=== PATIENT | male | born 2000 | race Caucasian/White ===

== ENCOUNTER 2020-06-29 19:52 | Inpatient (IN) | payer MEDICAID, OTHER ==
[~2020-06-29] VITALS: Ht 175.3 cm; Wt 92.7 kg
[2020-06-29] MEDS ORDERED: LORazepam 0.5 MG TAB ONE (20:27)
[2020-06-29] MEDS ORDERED: LORazepam 0.5 MG TAB PO ONE (20:45)
[2020-06-29] MEDS ORDERED: ALUM & MAG HYDROX-SIMETH LIQ(MAALOX) 30 ML ONE (21:45)
[2020-06-29] MEDS ORDERED: ALUM & MAG HYDROX-SIMETH LIQ(MAALOX) 30 ML PO ONE (22:45)
[2020-06-29] MEDS ORDERED: LORazepam 2MG/ML-1ML VIAL IM ONE (23:00)
[2020-06-29] MEDS ORDERED: HALOPERIDOL LACTATE 5 MG/ML INJ VIAL IM ONE (23:00)
[2020-06-29] MEDS ORDERED: diphenhdrAMINE HCL 50 MG/1 ML VL IM ONE (23:00)
[2020-06-29 23:11] LABS: Basophils # (auto) 0.1 10 ^3/uL (0-0.2); Basophils % (auto) 0.5 % (0.0-2.0); Eosinophils # (auto) 0 10 ^3/uL (0-0.8); Eosinophils % (auto) 0.4 % (0.0-7.0); Hematocrit 42.5 % (41.0-53.0); Hemoglobin 13.9 g/dL (13.5-17.5); Lymphocytes # (auto) 2.4 10 ^3/uL (0.4-5.4); Lymphocytes % (auto) 23.6 % (10.0-50.0); Mean Corpuscular Hemoglobin 28.5 pg (28.0-32.0); Mean Corpuscular Hgb Conc. 32.7 g/dL (32.0-36.0); Mean Corpuscular Volume 87.1 fL (80.0-100.0); Monocytes # (auto) 0.8 10 ^3/uL (0-1.3); Monocytes % (auto) 8.2 % (0.0-12.0); Neutrophils # (auto) 6.8 10 ^3/uL (1.6-8.6); Neutrophils % (auto) 67.3 % (37.0-80.0); Platelet Count (auto) 499 10^3/uL (140-450); Red Blood Cells 4.88 10^6/uL (4.5-5.90); Red Cell Distribution Width 14.1 % (11.8-14.3); White Blood Cell 10.1 10^3/uL (4.4-10.8)
[2020-06-29 23:20] LABS: Albumin 4.7 g/dL (3.4-5.0); Anion Gap 10 (5-15); Blood Alcohol < 3.0 mg/dL (0-5); Blood Urea Nitrogen 13 mg/dL (7-18); Calcium 9.3 mg/dL (8.5-10.1); Carbon Dioxide 23 mmol/L (21-32); Chloride 104 mmol/L (98-107); Glucose 95 mg/dL (74-106); Potassium 3.6 mmol/L (3.5-5.1); Sodium 137 mmol/L (136-145)
[2020-06-29 23:23] LABS: Alanine Aminotransferase 23 U/L (16-61); Alkaline Phosphatase 92 U/L (45-117); Aspartate Aminotransferase 17 U/L (15-37); BUN/Creatinine Ratio 14.8; Bilirubin, Total 1.3 mg/dL (0.2-1.0); GFR African American 141 mL/min; GFR Non-African American 116 mL/min; Total Protein 7.9 g/dL (6.4-8.2)
[2020-06-30] MEDS ORDERED: diphenhdrAMINE HCL 50 MG/1 ML VL ONE (01:03)
[2020-06-30] MEDS ORDERED: HALOPERIDOL LACTATE 5 MG/ML INJ VIAL ONE (01:03)
[2020-06-30 01:24] LABS: Amphetamine Screen, Urine NEGATIVE (NEGATIVE); Barbiturate Scree,Urine NEGATIVE (NEGATIVE); Benzodiazephine Screen, Urine NEGATIVE (NEGATIVE); Cannabinoid Screen, Urine POSITIVE (NEGATIVE); Cocaine Screen, Urine NEGATIVE (NEGATIVE); Phencyclidine Screen, Urine NEGATIVE (NEGATIVE)
[2020-06-30 01:31] LABS: Opiate Scree,Urine NEGATIVE (NEGATIVE)
[2020-06-30] MEDS ORDERED: diphenhdrAMINE HCL 50 MG/1 ML VL IV ONE (02:00)
[2020-06-30] MEDS ORDERED: HALOPERIDOL LACTATE 5 MG/ML INJ VIAL IM ONE ×3 (02:00→21:00)
[2020-06-30] MEDS ORDERED: diphenhdrAMINE HCL 50 MG/1 ML VL IM ONE ×2 (02:00→21:00)
[2020-06-30 06:54] LABS: Salicylate < 1.7 mg/dL (2.8-20.0)
[2020-06-30 07:02] LABS: Acetaminophen < 2.0 ug/mL (10-30)
[2020-06-30] MEDS ORDERED: LORazepam 2MG/ML-1ML VIAL IM ONE (21:00)
[2020-07-01] MEDS ORDERED: SODIUM CHLORIDE 0.9% 1,000 ML IV ONE ×2 (06:45→15:30)
[2020-07-01] MEDS ORDERED: LORazepam 2MG/ML-1ML VIAL IV ONE ×2 (06:45→15:30)
[2020-07-01 07:24] LABS: Basophils # (auto) 0 10 ^3/uL (0-0.2); Basophils % (auto) 0.5 % (0.0-2.0); Eosinophils # (auto) 0 10 ^3/uL (0-0.8); Eosinophils % (auto) 0.2 % (0.0-7.0); Hematocrit 41.9 % (41.0-53.0); Hemoglobin 14.4 g/dL (13.5-17.5); Lymphocytes # (auto) 1.2 10 ^3/uL (0.4-5.4); Lymphocytes % (auto) 13.5 % (10.0-50.0); Mean Corpuscular Hemoglobin 29.6 pg (28.0-32.0); Mean Corpuscular Hgb Conc. 34.3 g/dL (32.0-36.0); Mean Corpuscular Volume 86.3 fL (80.0-100.0); Monocytes # (auto) 0.6 10 ^3/uL (0-1.3); Monocytes % (auto) 6.5 % (0.0-12.0); Neutrophils # (auto) 7.1 10 ^3/uL (1.6-8.6); Neutrophils % (auto) 79.3 % (37.0-80.0); Nucleated Red Blood Cells % 0.1 %; Platelet Count (auto) 446 10^3/uL (140-450); Red Blood Cells 4.86 10^6/uL (4.5-5.90); Red Cell Distribution Width 13.7 % (11.8-14.3); White Blood Cell 8.9 10^3/uL (4.4-10.8)
[2020-07-01 07:42] LABS: Albumin 4.5 g/dL (3.4-5.0); Calcium 9.2 mg/dL (8.5-10.1); Magnesium 2.8 mg/dL (1.6-2.6); Potassium 3.4 mmol/L (3.5-5.1)
[2020-07-01 07:47] LABS: BUN/Creatinine Ratio 13.5; Bilirubin, Total 1.1 mg/dL (0.2-1.0); Total Protein 7.8 g/dL (6.4-8.2)
[2020-07-01] MEDS ORDERED: diphenhdrAMINE HCL 50 MG/1 ML VL IV ONE (15:30)
[2020-07-01] MEDS ORDERED: LORazepam 2MG/ML-1ML VIAL IM ONE (19:45)
[2020-07-01] MEDS ORDERED: OLANZapine 5 MG TAB PO ONE (20:30)
[2020-07-01] MEDS ORDERED: PROPOFOL 100 ML IV ONE (21:21)
[2020-07-01] MEDS ORDERED: PROPOFOL 10 MG/ML 20 ML IV ONE (22:30)
[2020-07-02] MEDS ORDERED: NITROGLYCERIN 0.4 MG SL TAB SL PRN (00:15)
[2020-07-02] MEDS ORDERED: LORazepam 2MG/ML-1ML VIAL IV PRN (00:15)
[2020-07-02] MEDS ORDERED: MORPHINE SULF INJ 2 MG/ML SYRINGE 1ML IV PRN (00:15)
[2020-07-02] MEDS ORDERED: ONDANSETRON HCL 4 MG/2 ML VIAL IV PRN (00:15)
[2020-07-02] MEDS ORDERED: POTASSIUM EFFERVESENT TAB 25 MEQ PO ONE (12:00)
[2020-07-02] MEDS: FAMOTIDINE 20 MG TAB PO SCH (18:10)
[2020-07-03] MEDS: FAMOTIDINE 20 MG TAB PO SCH ×3 (05:13→22:00)
[2020-07-03 10:35] LABS: Basophils # (auto) 0 10 ^3/uL (0-0.2); Basophils % (auto) 0.4 % (0.0-2.0); Eosinophils # (auto) 0 10 ^3/uL (0-0.8); Eosinophils % (auto) 0.5 % (0.0-7.0); Hematocrit 42.7 % (41.0-53.0); Hemoglobin 14.2 g/dL (13.5-17.5); Lymphocytes # (auto) 1.5 10 ^3/uL (0.4-5.4); Lymphocytes % (auto) 15.6 % (10.0-50.0); Mean Corpuscular Hemoglobin 28.9 pg (28.0-32.0); Mean Corpuscular Hgb Conc. 33.1 g/dL (32.0-36.0); Mean Corpuscular Volume 87.3 fL (80.0-100.0); Monocytes # (auto) 0.7 10 ^3/uL (0-1.3); Monocytes % (auto) 6.9 % (0.0-12.0); Neutrophils # (auto) 7.2 10 ^3/uL (1.6-8.6); Neutrophils % (auto) 76.6 % (37.0-80.0); Platelet Count (auto) 413 10^3/uL (140-450); Red Cell Distribution Width 13.7 % (11.8-14.3); White Blood Cell 9.4 10^3/uL (4.4-10.8)
[2020-07-03 10:55] LABS: BUN/Creatinine Ratio 13.8; Calcium 9.1 mg/dL (8.5-10.1); Potassium 3.4 mmol/L (3.5-5.1)
[2020-07-03] MEDS: TEMAZEPAM 15 MG CAP PO PRN (18:52)
[2020-07-04] MEDS: FAMOTIDINE 20 MG TAB PO SCH ×2 (10:31→21:41)
[2020-07-04] MEDS: LORazepam 0.5 MG TAB PO PRN (13:26)
[2020-07-04 13:49] VITALS: BP 139/88
[2020-07-04 16:53] VITALS: BP 137/73
[2020-07-04 21:37] VITALS: BP 138/67
[2020-07-05] MEDS: LORazepam 0.5 MG TAB PO PRN (00:25)
[2020-07-05 05:00] VITALS: BP 142/85
[2020-07-05 09:00] VITALS: BP 133/80
[2020-07-05] MEDS: THIAMINE 100mg/ml INJ (200mg/2ml VIAL) IM SCH (11:19)
[2020-07-05] MEDS: FAMOTIDINE 20 MG TAB PO SCH ×3 (11:19→22:40)
[2020-07-05 12:51] VITALS: BP 135/84
[2020-07-05] MEDS: HALOPERIDOL LACTATE 5 MG/ML INJ VIAL IM PRN ×2 (15:17→22:42)
[2020-07-05 22:14] VITALS: BP 138/87
[2020-07-06 04:50] VITALS: BP 125/81
[2020-07-06 08:50] VITALS: BP 119/60
[2020-07-06] MEDS: THIAMINE 100mg/ml INJ (200mg/2ml VIAL) IM SCH (10:37)
[2020-07-06] MEDS: FAMOTIDINE 20 MG TAB PO SCH ×2 (10:37→22:29)
[2020-07-06] MEDS: risperiDONE 1 MG TAB PO SCH (10:38)
[2020-07-06] MEDS ORDERED: OLANZapine 5 MG TAB PO ONE (11:00)
[2020-07-06] MEDS: OLANZapine 5 MG TAB PO SCH ×2 (12:15→22:29)
[2020-07-06 13:00] VITALS: BP 120/70
[2020-07-06 14:41] VITALS: BP 125/91
[2020-07-06 15:04] LABS: Calcium 8.6 mg/dL (8.5-10.1); Potassium 4.1 mmol/L (3.5-5.1)
[2020-07-06 15:05] LABS: BUN/Creatinine Ratio 9.3
[2020-07-06] MEDS ORDERED: NICOTINE 21MG/24 HR TOPICAL PATCH TD ONE (17:00)
[2020-07-06] MEDS: ACETAMINOPHEN 325 MG TAB PO PRN (17:11)
[2020-07-06 17:32] VITALS: BP 136/58
[2020-07-06 22:00] VITALS: BP 127/77
[2020-07-06] MEDS ORDERED: OLANZapine 5 MG TAB PO SCH (22:00)
[2020-07-06] MEDS: TEMAZEPAM 15 MG CAP PO PRN (22:29)
[2020-07-07 05:00] VITALS: BP 130/79
[2020-07-07 09:00] VITALS: BP 136/80
[2020-07-07] MEDS: FAMOTIDINE 20 MG TAB PO SCH ×2 (09:53→21:36)
[2020-07-07] MEDS: risperiDONE 1 MG TAB PO SCH (09:53)
[2020-07-07] MEDS: THIAMINE 100mg/ml INJ (200mg/2ml VIAL) IM SCH (09:53)
[2020-07-07] MEDS: OLANZapine 5 MG TAB PO SCH ×2 (09:54→21:36)
[2020-07-07] MEDS: NICOTINE 21MG/24 HR TOPICAL PATCH TD SCH (09:55)
[2020-07-07 12:01] LABS: BUN/Creatinine Ratio 15.6; Calcium 8.8 mg/dL (8.5-10.1); Potassium 4.1 mmol/L (3.5-5.1)
[2020-07-07 12:10] LABS: Basophils # (auto) 0 10 ^3/uL (0-0.2); Basophils % (auto) 0.4 % (0.0-2.0); Eosinophils # (auto) 0.1 10 ^3/uL (0-0.8); Eosinophils % (auto) 1.8 % (0.0-7.0); Hematocrit 42.7 % (41.0-53.0); Hemoglobin 14.3 g/dL (13.5-17.5); Lymphocytes # (auto) 1.6 10 ^3/uL (0.4-5.4); Lymphocytes % (auto) 21.5 % (10.0-50.0); Mean Corpuscular Hgb Conc. 33.5 g/dL (32.0-36.0); Mean Corpuscular Volume 86.8 fL (80.0-100.0); Monocytes # (auto) 0.6 10 ^3/uL (0-1.3); Monocytes % (auto) 8.8 % (0.0-12.0); Neutrophils # (auto) 4.9 10 ^3/uL (1.6-8.6); Neutrophils % (auto) 67.5 % (37.0-80.0); Nucleated Red Blood Cells % 0.1 %; Platelet Count (auto) 361 10^3/uL (140-450); Red Blood Cells 4.92 10^6/uL (4.5-5.90); Red Cell Distribution Width 13.8 % (11.8-14.3); White Blood Cell 7.3 10^3/uL (4.4-10.8)
[2020-07-07 13:00] VITALS: BP 137/88
[2020-07-07 16:56] VITALS: BP 143/96
[2020-07-07] MEDS: LORazepam 0.5 MG TAB PO PRN (21:37)
[2020-07-07 22:00] VITALS: BP 147/87
[2020-07-08] MEDS: TEMAZEPAM 15 MG CAP PO PRN (00:09)
[2020-07-08 05:00] VITALS: BP 141/95
[2020-07-08 08:00] VITALS: BP 123/73
[2020-07-08 08:59] VITALS: BP 123/73
[2020-07-08] MEDS: THIAMINE 100mg/ml INJ (200mg/2ml VIAL) IM SCH (09:19)
[2020-07-08] MEDS: FAMOTIDINE 20 MG TAB PO SCH ×2 (09:28→21:23)
[2020-07-08] MEDS: risperiDONE 1 MG TAB PO SCH (09:29)
[2020-07-08] MEDS: NICOTINE 21MG/24 HR TOPICAL PATCH TD SCH (09:29)
[2020-07-08] MEDS: OLANZapine 5 MG TAB PO SCH ×2 (09:29→21:23)
[2020-07-08] MEDS: LORazepam 0.5 MG TAB PO PRN (09:30)
[2020-07-08] MEDS ORDERED: diphenhdrAMINE HCL 25 MG CAP PO PRN (13:15)
[2020-07-08 17:00] VITALS: BP 130/81
[2020-07-08] MEDS: ACETAMINOPHEN 325 MG TAB PO PRN (20:22)
[2020-07-08 22:00] VITALS: BP 127/86
[2020-07-09] MEDS: TEMAZEPAM 15 MG CAP PO PRN (01:11)
[2020-07-09 05:00] VITALS: BP 112/55
[2020-07-09 08:13] LABS: Basophils # (auto) 0 10 ^3/uL (0-0.2); Basophils % (auto) 0.5 % (0.0-2.0); Eosinophils # (auto) 0.2 10 ^3/uL (0-0.8); Eosinophils % (auto) 2.8 % (0.0-7.0); Hematocrit 45.9 % (41.0-53.0); Hemoglobin 15.5 g/dL (13.5-17.5); Lymphocytes # (auto) 1.6 10 ^3/uL (0.4-5.4); Mean Corpuscular Hemoglobin 29.5 pg (28.0-32.0); Mean Corpuscular Hgb Conc. 33.8 g/dL (32.0-36.0); Mean Corpuscular Volume 87.2 fL (80.0-100.0); Monocytes # (auto) 0.5 10 ^3/uL (0-1.3); Monocytes % (auto) 7.9 % (0.0-12.0); Neutrophils # (auto) 4.5 10 ^3/uL (1.6-8.6); Neutrophils % (auto) 65.8 % (37.0-80.0); Platelet Count (auto) 369 10^3/uL (140-450); Red Blood Cells 5.27 10^6/uL (4.5-5.90); Red Cell Distribution Width 13.9 % (11.8-14.3); White Blood Cell 6.9 10^3/uL (4.4-10.8)
[2020-07-09 08:36] LABS: Potassium 4.3 mmol/L (3.5-5.1)
[2020-07-09 08:54] LABS: BUN/Creatinine Ratio 12.2; Calcium 9.3 mg/dL (8.5-10.1)
[2020-07-09 09:00] VITALS: BP 141/81
[2020-07-09] MEDS: OLANZapine 5 MG TAB PO SCH (10:00)
[2020-07-09] MEDS ORDERED: THIAMINE HCL 100 MG TAB PO SCH (10:00)
[2020-07-09] MEDS: FAMOTIDINE 20 MG TAB PO SCH (10:00)
[2020-07-09] MEDS: NICOTINE 21MG/24 HR TOPICAL PATCH TD SCH (10:00)
[2020-07-09] MEDS: risperiDONE 1 MG TAB PO SCH (10:00)
[2020-07-09 13:00] VITALS: BP 122/69
[2020-07-09 16:51] VITALS: BP 142/75
== END 2020-07-09 20:22 | disposition home or self-care (01) | DRG 52 ==
LOC: ER 19:52 → TELE 07-02 00:21 → TELE-WESTW 07-04 10:47
PROVIDERS: ADMIT Nurse Practitioner; ATTEND Internal Medicine
DX: G92 Toxic encephalopathy (principal); F19.239 Other psychoactive substance dependence with withdrawal, unspecified; F23 Brief psychotic disorder; F43.10 Post-traumatic stress disorder, unspecified; F11.90 Opioid use, unspecified, uncomplicated; E87.6 Hypokalemia
CPT/HCPCS: 36415; 70450; 71045; 80048; 80053; 80307; 80320; 80329; 83735; 84443; 85025; 96361; 96372; 96374; 96375; 96376; A4565; G0378; J2704